=== PATIENT | female | born 1945 | race Caucasian/White ===

== ENCOUNTER 2016-10-14 10:53 | Outpatient (CLI) | payer MEDICARE, BC ==
[~2016-10-14] VITALS: Ht 165.1 cm; Wt 62.7 kg
[~2016-10-14 10:53] MED LIST: AMBIEN10 MG PO; ARMOUR THYROID60 M1 PO; CELEXA20 MG PO; DILAUDID2 MG PO; GLUCOPHAGE1000 MG PO; HORMONE PATCH; HYDROCODON-ACE1 EAC7 PO; NEXIUM40 MG PO; XANAX1 MG PO
[2016-10-14] MEDS ORDERED: SYMBICORT 80-10.2 GM INH (11:26)
[2016-10-14 11:31] VITALS: BP 111/46; Ht 165.1 cm; Wt 62.7 kg
--- NOTE | 2016-10-14 11:55 | NUR ---
1155 PT VOIDS, DRINKING WATER, PT. ENCOURAGED TO DRINK PLENTY OF WATER. DC INSTS. GIVEN WITH HANDOUTS. RELEASED AMB.
== END 2016-10-14 11:55 | disposition home or self-care (01) ==
LOC: D.OPS 10:53
DX: M81.0 Age-related osteoporosis without current pathological fracture (principal)

== ENCOUNTER → 2018-02-09 10:24 | Outpatient (CLI) | payer MEDICARE, BC ==
[2016-10-14 11:31] VITALS: BMI 23.0
[~2018-02-09 10:24] MED LIST changes: +SYMBICORT 80-10.2 GM INH
== END | disposition home or self-care (01) ==
LOC: D.US 10:24
DX: I83.893 Varicose veins of bilateral lower extremities with other complications (principal)

== ENCOUNTER 2018-02-18 10:02 | Outpatient (CLI) | payer MEDICARE, BC ==
[~2018-02-18] VITALS: Ht 165.1 cm; Wt 68.6 kg
[2018-02-18 10:32] VITALS: Ht 165.1 cm; Wt 68.6 kg
== END 2018-02-18 11:21 | disposition home or self-care (01) ==
LOC: D.OPS 10:02
DX: M81.0 Age-related osteoporosis without current pathological fracture (principal)

== ENCOUNTER → 2018-02-22 07:42 | Outpatient (CLI) | payer MEDICARE, BC ==
[2018-02-18 10:32] VITALS: BMI 25.1
== END | disposition home or self-care (01) ==
LOC: D.MRI 07:42
DX: M54.16 Radiculopathy, lumbar region (principal)

== ENCOUNTER 2018-09-01 19:39 | Observation (INO) | payer MEDICARE, BC ==
[~2018-09-01] VITALS: Ht 165.1 cm; Wt 69.4 kg
[2018-09-01] MEDS ORDERED: ATIVAN0.5 MG (19:49)
[2018-09-01] MEDS ORDERED: LEXAPRO10 MG PO (19:49)
[2018-09-01 19:57] VITALS: BP 106/49
[2018-09-01 20:33] LABS: EOSINOPHILS 6.3 % (0-7); HEMOGLOBIN 11.6 g/dL (12-16); IMMATURE GRANULOCYTES 0.1 % (0-5); LYMPHOCYTES 25.7 % (15-50); MCH 30.3 pg (26.0-34.0); MCHC 34.1 g/dL (31.0-37.0); MCV 88.8 fL (80.0-100.0); MEAN PLATELET VOLUME 9.2 fL (7.4-10.4); MONOCYTES 9.8 % (2-11); NEUTROPHILS 57.1 % (40-80); PLATELET COUNT 295 10x3/uL (130-400); RBC 3.83 10x6/uL (4.00-5.40); RDW 13.8 % (11.5-14.5); WBC 8.1 10x3/uL (4.8-10.8)
[2018-09-01 20:43] LABS: APTT 29.6 SECONDS (22.8-39.4); INR 0.99 (0.85-1.17); PROTIME 12.6 SECONDS (11.6-15.0)
[2018-09-01 21:11] LABS: ALBUMIN 3.5 g/dL (3.4-5.0); ALKALINE PHOSPHATASE 60 U/L (46-116); ALT (SGPT) 25 U/L (10-68); CALC OSMOLALITY 276 mosm/kg (275-300); CARBON DIOXIDE 24.6 mmol/L (21.0-32.0); CHLORIDE - SERUM 102 mmol/L (98-107); CKMB 2.8 U/L (0.0-3.6); CREATINE KINASE 169 UL (21-215); CREATININE - SERUM 0.9 mg/dL (0.6-1.3); GLUCOSE 91 mg/dL (74-106); MAGNESIUM - SERUM 1.5 mg/dL (1.8-2.4); PROTEIN - SERUM 6.7 g/dL (6.4-8.2); SODIUM 138 mmol/L (136-145); UREA NITROGEN 15 mg/dL (7-18); eGFR NON AFRICAN AMERICAN 65 mL/min (90-120)
[2018-09-01 21:13] LABS: POTASSIUM - SERUM 2.9 mmol/L (3.5-5.1); TROPONIN-I < 0.017 ng/mL (0.000-0.060)
--- NOTE | 2018-09-01 23:06 | NUR ---
REPORT RECEIVED FROM ERICKA ISLAS.
--- NOTE | 2018-09-01 23:10 | NUR ---
ARRIVED TO FLOOR VIA WHEELCHAIR, ACCOMPANIED BY HOSPITAL STAFF AND FAMILY. ORIENTED TO UNIT AND PLACED ON TELEMETRY. PLAN OF CARE DISCUSSED, CALL LIGHT IN REACH. SEE NURSE ASSESSMENT.
[2018-09-02 00:01] VITALS: BP 113/56; BMI 25.5
[2018-09-02] MEDS ORDERED: ALBUTEROL1.25 MG/3 INH (00:12)
[2018-09-02] MEDS ORDERED: STOOL SOFTENER100 M1 PO (00:12)
[2018-09-02 03:12] LABS: EOSINOPHILS 6.4 % (0-7); HEMOGLOBIN 12.1 g/dL (12-16); IMMATURE GRANULOCYTES 0.1 % (0-5); LYMPHOCYTES 33.2 % (15-50); MCH 30.3 pg (26.0-34.0); MCHC 34.6 g/dL (31.0-37.0); MCV 87.7 fL (80.0-100.0); MONOCYTES 8.4 % (2-11); NEUTROPHILS 50.9 % (40-80); PLATELET COUNT 295 10x3/uL (130-400); RBC 3.99 10x6/uL (4.00-5.40); RDW 13.7 % (11.5-14.5)
[2018-09-02 03:30] LABS: ALBUMIN 3.3 g/dL (3.4-5.0); ALKALINE PHOSPHATASE 57 U/L (46-116); ALT (SGPT) 24 U/L (10-68); CALC OSMOLALITY 278 mosm/kg (275-300); CALCIUM 8.8 mg/dL (8.5-10.1); CHLORIDE - SERUM 104 mmol/L (98-107); CKMB 2.4 U/L (0.0-3.6); CREATINE KINASE 147 UL (21-215); CREATININE - SERUM 0.8 mg/dL (0.6-1.3); GLUCOSE 95 mg/dL (74-106); POTASSIUM - SERUM 3.3 mmol/L (3.5-5.1); PROTEIN - SERUM 6.5 g/dL (6.4-8.2); SODIUM 140 mmol/L (136-145); UREA NITROGEN 13 mg/dL (7-18); eGFR NON AFRICAN AMERICAN 74 mL/min (90-120)
[2018-09-02 03:31] LABS: TROPONIN-I < 0.017 ng/mL (0.000-0.060)
[2018-09-02 04:00] VITALS: BP 93/52
--- NOTE | 2018-09-02 04:25 | NUR ---
ADVERTISING WRITER AT BEDSIDE TO OBTAIN VITALS, CALL LIGHT IN REACH. WILL CONTINUE WITH PLAN OF CARE.
[2018-09-02 09:27] LABS: CKMB 2.4 U/L (0.0-3.6); CREATINE KINASE 130 UL (21-215); TROPONIN-I < 0.017 ng/mL (0.000-0.060)
[2018-09-02 09:33] VITALS: BP 113/43
[2018-09-02 12:18] VITALS: BP 112/46
[2018-09-02 12:47] VITALS: Ht 165.1 cm; Wt 69.4 kg
--- NOTE | 2018-09-02 15:03 | NUR ---
IV AND TELEMETRY DCD. DC PLANS GIVEN. UNDERSTANDING VOICED. ESCORTED TO CAR BY W/C.
--- NOTE | 2018-09-03 08:22 | MORECARE ---
CASE MANAGEMENT DISCHARGE SUMMARY PATIENT: CUBA BIRMINGHAM UNIT: [id number] ADM DATE: 09/01/18 AGE: 73 : 43 SEX: F ROOM/BED: D.2855 AUTHOR: SUNITHA HENNING PHYSICIAN: REFERRING PHYSICIAN: CARLEY MORLEY MD DATE OF SERVICE: 09/03/18 Discharge Plan Patient Name: CUBA BIRMINGHAM Facility: [facility]:[place] : 1945 Planned Disposition: Home Anticipated Discharge Date: 09/02/18 Discharge Date: 09/02/2018 Expected LOS: 1 Initial Reviewer: [email or web address] Initial Review Date: 09/03/2018 Generated: 09/03/18 9:22 am Patient Name: CUBA BIRMINGHAM Page [id number] at 0822 All edits/amendments must be made on the electronic document DICTATION DATE: 09/03/18821 ACCOUNT MANAGER TRAINEE: DAILY 09/03/18821 RPT#: [id number] DC DATE:09/02/18 STATUS: DIS IN [facility] [address] [place] [address] END OF REPORT
== END 2018-09-02 15:24 | disposition home or self-care (01) ==
LOC: D.ER 19:39 → OBSVTIME 22:49 → D.M2 22:49
PROVIDERS: Family Medicine; ADMIT Family Medicine
DX: I20.9 Angina pectoris, unspecified (principal); K21.9 Gastro-esophageal reflux disease without esophagitis; E03.9 Hypothyroidism, unspecified; J45.909 Unspecified asthma, uncomplicated; M81.0 Age-related osteoporosis without current pathological fracture; M85.80 Other specified disorders of bone density and structure, unspecified site; Z91.041 Radiographic dye allergy status

== ENCOUNTER → 2018-09-30 05:10 | Day surgery (SDC) | payer MEDICARE, BC ==
[2018-09-29 14:59] LABS: HEMOGLOBIN 10.7 g/dL (12-16); MCH 30.1 pg (26.0-34.0); MCHC 33.4 g/dL (31.0-37.0); MCV 90.1 fL (80.0-100.0); MEAN PLATELET VOLUME 9.3 fL (7.4-10.4); RBC 3.55 10x6/uL (4.00-5.40); RDW 13.6 % (11.5-14.5)
[~2018-09-30] VITALS: Ht 165.1 cm; Wt 70.3 kg
[~2018-09-30 05:10] MED LIST changes: +ALBUTEROL1.25 MG/3 INH; +ALBUTEROL2.5 MG/3 M INH; +ATIVAN0.5 MG; +ATIVAN0.5 MG PO; +BREO ELLIPTA 21 EACH; +FLUTICASONE PRO16 GM NASAL; +HYDROCODON-ACE1 EA10 PO; +K-TAB10 MEQ PO; +LEXAPRO10 MG PO; +MAXZIDE 75/501 TAB PO; +STOOL SOFTENER100 M1 PO; +VIVELLE-DOT 00.05 MG TD; +ZOLOFT100 MG PO
[2018-09-30 06:31] VITALS: BP 108/48; BP 168/48; Ht 165.1 cm; Wt 70.3 kg
--- NOTE | 2018-09-30 13:18 | NUR ---
1245. ALL DC CRITERIA MET. ALL DC INSTRUCTIONS GIVEN WELL FOLLOW UP APPOINTMENT. TAKEN OUT VIA W/C AND ASSISTED TO CAR WITH SON. ADVISED TO CALL OR COME BACK IF ANY PROBLEMS.
--- NOTE | 2018-10-08 17:22 | OP ---
PATIENT NAME: CUBA BIRMINGHAM MEDICAL RECORD: [id number] :43 LOCATION:[facility] ADMISSION DATE: SURGEON: KATHRYN APODACA MD DATE OF OPERATION: 09/30/2018 PREOPERATIVE DIAGNOSES: Lumbar spinal stenosis, L4-L5 left with foraminal stenosis. PROCEDURES: Lumbar laminotomy, medial facetectomy and foraminotomy L4-L5 left with METRx retractor. SURGEON: Kathryn Apodaca MD DESCRIPTION AND TECHNIQUE: After induction of general endotracheal anesthesia, the patient was rolled prone on a Reji frame. Lumbar spine was prepped and draped in usual sterile fashion. Fluoroscopic x-ray and a spinal needle localized the L4-L5 interspace on the left side. Level was confirmed with fluoroscopic x-ray. A microscope and Midas Avinash drill were used to perform a laminotomy, medial facetectomy and foraminotomy at L4-L5 on the left. Hypertrophied ligamentum flavum was removed with Cloward rongeurs. Following this, the L4 and L5 nerve roots were decompressed well. Meticulous hemostasis was maintained throughout the wound. Wound was irrigated with copious amounts of Ancef irrigant solution. The retractors were removed. The fascia was closed with 2-0 Vicryl suture. Subdermal layer was closed with interrupted 3-0 Vicryl suture. The skin was reapproximated with Steri-Strips and benzoin. A sterile dressing was applied to the wound. The patient was awakened in good condition and taken to recovery. All counts were reported as correct. Estimated blood loss was minimal. TRANSINT:[id number] Voice Confirmation ID: [id number] DOCUMENT ID: [id number] KATHRYN APODACA MD at 1722 CC: [id number] DICTATION DATE: 10/06/18 0745 FIELD ENUMERATOR: 10/06/18 0852 [facility] 09/30/18 [place] [id number]
== END | disposition home or self-care (01) ==
LOC: D.OPS 05:10 → D.PAN 07:30 → D.OPS 07:30
PROVIDERS: Anesthesiology; ATTEND Neurological Surgery
DX: M48.061 Spinal stenosis, lumbar region without neurogenic claudication (principal)

== ENCOUNTER 2018-10-14 10:40 | Day surgery (SDC) | payer MEDICARE, BC ==
[2018-10-13 13:43] LABS: HEMATOCRIT 32.7 % (36.0-48.0); HEMOGLOBIN 10.9 g/dL (12-16); MCH 29.5 pg (26.0-34.0); MCHC 33.3 g/dL (31.0-37.0); MCV 88.6 fL (80.0-100.0); MEAN PLATELET VOLUME 8.6 fL (7.4-10.4); RBC 3.69 10x6/uL (4.00-5.40); RDW 12.8 % (11.5-14.5); WBC 13.1 10x3/uL (4.8-10.8)
[~2018-10-14] VITALS: Ht 165.1 cm; Wt 70.3 kg
[2018-10-14 11:44] VITALS: BP 97/74; Ht 165.1 cm; Wt 70.3 kg
--- NOTE | 2018-10-14 17:50 | NUR ---
DR CHIU SPEAKS WITH PATIENT ABOUT CANCELLING SURGERY DUE TO DELAYS IN OR. RIGHT HAND PIV DC'D WITH TIP INTACT. PATIENT DRESSING IN PERSONAL CLOTHING WITH SON WAITING OUTSIDE ROOM 1802 PATIENT DISCHARGED HOME AMBULATORY WITH SON
== END 2018-10-14 18:02 | disposition home or self-care (01) ==
LOC: D.OPS 10:40
PROVIDERS: Anesthesiology; ATTEND Urology
DX: N39.3 Stress incontinence (female) (male) (principal); Z53.8 Procedure and treatment not carried out for other reasons; Z01.812 Encounter for preprocedural laboratory examination

== ENCOUNTER 2018-11-09 07:15 | Day surgery (SDC) | payer MEDICARE, BC ==
[2018-11-08 11:57] LABS: HEMATOCRIT 34.1 % (36.0-48.0); HEMOGLOBIN 11.6 g/dL (12-16); MCH 29.2 pg (26.0-34.0); MCV 85.9 fL (80.0-100.0); MEAN PLATELET VOLUME 9.2 fL (7.4-10.4); RBC 3.97 10x6/uL (4.00-5.40); RDW 13.2 % (11.5-14.5); WBC 7.6 10x3/uL (4.8-10.8)
[2018-11-08 12:12] LABS: ANION GAP 12.7 mmol/L (8-16); CALCIUM 9.9 mg/dL (8.5-10.1); CARBON DIOXIDE 28.6 mmol/L (21.0-32.0); CREATININE - SERUM 0.9 mg/dL (0.6-1.3); POTASSIUM - SERUM 3.3 mmol/L (3.5-5.1)
[~2018-11-09] VITALS: Ht 165.1 cm; Wt 70.3 kg
[2018-11-09 08:03] VITALS: BP 104/45; Ht 165.1 cm; Wt 70.3 kg
--- NOTE | 2018-11-09 14:40 | NUR ---
PT ASSISTED TO BATHROOM, VOIDED UNMEASURED AMT BLOOD NOTE IN TOILET NO CLOTS,
--- NOTE | 2018-11-09 15:35 | NUR ---
1500 PTS PAD WITH LIGHT SCANT AMT OF BLOOD. 1515 IV REMOVED AND PRESSURE HELD. CATH INTACT. 1530 ASSISTED WITH GETTING DRESSED AND TO HOME IN W/C POST OP INSTRUCTIONS AND RX REVEIWED WITH SON EARLIER
--- NOTE | 2018-11-09 16:15 | OP ---
PATIENT NAME: CUBA BIRMINGHAM MEDICAL RECORD: [id number] :43 LOCATION:D.[facility] ADMISSION DATE: SURGEON: ZI CHIU MD DATE OF OPERATION: 11/09/2018 SURGEON: Zi Chiu MD ANESTHESIA: General anesthesia by Shweta Huang CRNA DIAGNOSIS: Female stress urinary incontinence. PROCEDURES: Cystoscopy, pubovaginal sling with mesh - [place] [employer] Obtryx II. FINDINGS: On cystoscopy, single ureteral orifices bilaterally. No bladder tumors seen. There was no bladder injury. The patient also has a grade I cystocele on pelvic examination. BLOOD LOSS: Minimal. SPECIMENS: None. CLINICAL HISTORY: This is a 73-year-old female A0, who still has her uterus. She has been complaining of urinary incontinence for a number of months. She will leak urine when she arises from bed or chair. She will also leak urine with coughing, sneezing, shouting, or lifting. She has no urinary urgency. She tried oxybutynin, which did not work at all. She uses 3-5 pads per day. She has nocturia times 1. Due to the high volume of leakage, she may soak through her clothing and she is quite bothered by the incontinence. When I examined her in the office, she did have stress urinary incontinence in association with a hypermobile urethra. She had a positive Toby test. In the office, I did not see any significant cystocele, but there is a grade I cystocele on pelvic examination today. She does not have any uterine descent. SHE IS ALLERGIC TO PENICILLIN, CODEINE, NSAIDs, DARVOCET, AND IODINATED CONTRAST. In the past when she has had surgery, she had Salinas given to her for pain and it works fine for her. She was given Levaquin IV on-call to the OR. She wishes to have mesh for the pubovaginal sling. She is aware of the risks of mesh use including infection, graft erosion, graft extrusion into the vagina. There is also risk of dyspareunia and chronic pelvic pain. She is also aware that the adverse outcomes of surgery may include persistence of stress urinary incontinence, urinary retention or incomplete bladder emptying, de balaji urge incontinence. She wishes to proceed with surgery. DESCRIPTION OF PROCEDURE: The patient was given induction of general anesthesia. She was placed into dorsal lithotomy position and in Trendelenburg. A weighted speculum was used to hold the posterior vaginal wall down. We placed a 16-Barbadian Donaldson catheter and put it to bag drainage. The #2 nylon sutures were used as stay sutures to retract the labia majora laterally. These were anchored to the medial thighs. The anterior vaginal wall was then infiltrated in the region of the urethra with Pitressin solution. Twenty units of Pitressin was dissolved in 100 mL of injectable normal saline. This anterior dissection was limited to the urethral area and to the proximal bladder neck to serve as hydrodissection. A T-shaped incision was made. The crossbar of the T was located about 1 cm away from the urethral meatus. The vertical bar of T ran along the anterior vaginal wall midline. Once the incision was made, dissection OPERATIVE REPORT [id number] CUBA BIRMINGHAM was then made with Metzenbaum scissors through the pubocervical fascia. I exposed the obturator membrane on both sides. Especially, the anterior apex of the obturator membrane was exposed. We then landmarked for the insertion of the transobturator graft. This was just inferior to the insertion of the adductor longus muscle onto the descending pubic ramus. A murali was made on each side with a marking pen at this point. A stab incision was made using a #15 blade. The helical trocars were then passed through this stab incision, and with the helical trocar passing deep to the descending pubic ramus, the tip of the needle came out through the anterior apex of the obturator membrane. The Obtryx graft ends were then attached to each of the tips of the helical trocars. By withdrawing the helical trocars, we had transobturator passage of the graft. There was a tab situated in the midportion of the graft. This tab was placed under the midpoint of the mid urethra. At this point, the graft was placed fairly loosely. I then removed the tab once it was in correct position. The Donaldson catheter was removed and cystoscopy was performed using a 17-Barbadian cystoscope. No bladder injury was seen. The bladder was filled through the cystoscope with normal saline. By applying manual suprapubic pressure, we could elicit leakage per the urethra. Tension on the graft was gradually increased until there was just the barest amount of leakage with rather significant amount of suprapubic pressure applied manually. At this point, I decided not to make the graft any tighter unless she should go into urinary retention. The clear plastic sheath material was removed from each of the graft ends. This was done by cutting suture and then with a Aydee clamp between the urethra and the midpoint of the graft to prevent an increase in graft tension. The sheath material was removed. The ends of the graft were then cut where they exited the inguinal skin incisions. These incisions were then closed with simple interrupted 4-0 Monocryl. The vaginal wound site was irrigated out with normal saline. The vaginal incision was closed using running 4-0 Monocryl. During the closure, a Donaldson catheter was put back into the bladder to drain the bladder. At the end of the closure, vaginal packing was inserted into the vaginal area. This consisted of Kerlix infiltrated with estrogen cream. This packing will be removed prior to the patient going home today. The Donaldson catheter was also removed. We will have the patient try to void today. If she cannot void after anesthesia, then she will go home with a Donaldson cath and I will see her later this week to have another voiding trial. Otherwise, I will see her in follow up in one week's time. TRANSINT:[id number] Voice Confirmation ID: [id number] DOCUMENT ID: [id number] ZI CHIU MD at 1615 CC: [id number] DICTATION DATE: 11/09/18 1244 LANDSCAPE TECHNICIAN: 11/09/18 1608 [facility] 11/09/18 [place] [id number] [place] [id number]
== END 2018-11-09 15:30 | disposition home or self-care (01) ==
LOC: D.OPS 07:15 → D.PAN 08:55 → D.OPS 09:15 → D.PAN 09:15 → D.OPS 09:30 → D.PAN 09:30 → D.OPS 15:30
PROVIDERS: Anesthesiology; ATTEND Urology
DX: N39.3 Stress incontinence (female) (male) (principal); N81.10 Cystocele, unspecified; Z88.5 Allergy status to narcotic agent; Z88.0 Allergy status to penicillin; Z88.6 Allergy status to analgesic agent; Z91.041 Radiographic dye allergy status; Z01.812 Encounter for preprocedural laboratory examination

== ENCOUNTER → 2020-01-20 09:33 | Outpatient (CLI) | payer MEDICARE, BC ==
[2018-11-09 08:03] VITALS: BMI 25.8
== END | disposition home or self-care (01) ==
LOC: D.RAD 09:33
PROVIDERS: ATTEND Internal Medicine Gastroenterology
DX: R13.10 Dysphagia, unspecified (principal); K22.2 Esophageal obstruction; K31.89 Other diseases of stomach and duodenum; K21.0 Gastro-esophageal reflux disease with esophagitis; R12 Heartburn; R07.9 Chest pain, unspecified

== ENCOUNTER → 2020-03-07 14:15 | Outpatient (CLI) | payer MEDICARE, BC ==
[2018-11-09 08:03] VITALS: BMI 25.8
== END | disposition home or self-care (01) ==
LOC: D.MRI 14:15
PROVIDERS: ATTEND Family Medicine
DX: L03.115 Cellulitis of right lower limb (principal)

== ENCOUNTER 2020-12-04 05:05 | Day surgery (SDC) | payer MEDICARE, BC ==
[~2020-12-04] VITALS: Ht 165.1 cm; Wt 73.5 kg
[~2020-12-04 05:05] MED LIST changes: +ADVAIR 250-501 EAC1 INH; +GABAPENTIN100 MG PO
[2020-12-04 05:56] VITALS: BP 107/44; Ht 165.1 cm; Wt 73.5 kg
[2020-12-04 06:06] LABS: EOSINOPHILS 3.6 % (0-7); HEMATOCRIT 36.4 % (36.0-48.0); HEMOGLOBIN 12.6 g/dL (12-16); IMMATURE GRANULOCYTES 0.3 % (0-5); LYMPHOCYTE ABS# 2.41 10x3/uL (1.18-3.74); LYMPHOCYTES 33.7 % (15-50); MCH 30.5 pg (26.0-34.0); MCHC 34.6 g/dL (31.0-37.0); MCV 88.1 fL (80.0-100.0); MEAN PLATELET VOLUME 8.8 fL (7.4-10.4); MONOCYTES 12.2 % (2-11); NEUTROPHIL ABS# 3.53 10x3/uL (1.56-6.13); NEUTROPHILS 49.2 % (40-80); PLATELET COUNT 359 10x3/uL (130-400); RBC 4.13 10x6/uL (4.00-5.40); RDW 14.5 % (11.5-14.5); WBC 7.2 10x3/uL (4.8-10.8)
[2020-12-04 06:18] LABS: ANION GAP 11.1 mmol/L (8-16); CALCIUM 10.4 mg/dL (8.5-10.1); CARBON DIOXIDE 28.4 mmol/L (21.0-32.0); CREATININE - SERUM 0.8 mg/dL (0.6-1.3); POTASSIUM - SERUM 3.5 mmol/L (3.5-5.1)
--- NOTE | 2020-12-04 11:35 | NUR ---
1120 PATIENT UP TO BATHROOM WITH ASSISTANCE FROM SPOUSE. STATES THAT SHE VOIDED A FEW DROPS. ENCOURAGED HER TO CONTINUE TO DRINK MORE LIQUIDS. WILL AWAIT DISCHARGE UNTIL MORE EFFECTIVE VOID.
--- NOTE | 2020-12-04 12:19 | NUR ---
1200 IV D/C'D WITH TIP INTACT. PATIENT UP TO BATHROOM. VOIDED. DRESSED FOR DISCHARGE. DISCHARGED TO PRIVATE CAR VIA WHEELCHAIR.
--- NOTE | 2020-12-05 13:09 | OP ---
PATIENT NAME: CUBA BIRMINGHAM MEDICAL RECORD: [id number] :43 LOCATION:D.[facility] ADMISSION DATE: SURGEON: PEPPER LINDSAY DO DATE OF OPERATION: 12/04/2020 PREOPERATIVE DIAGNOSIS: High-grade squamous intraepithelial lesion. POSTOPERATIVE DIAGNOSIS: High-grade squamous intraepithelial lesion, stage III cystocele. PRIMARY SURGEON: Pepper Lindsay DO ANESTHESIA: General ET tube. PROCEDURE: Loop electrosurgical excision procedure. FINDINGS: Normal appearing external genitalia, normal appearing vaginal vault, stage III anterior prolapse. Cervix grossly normal. SPECIMENS: Portion of ectocervix and portion of endocervix. ESTIMATED BLOOD LOSS: 5 cc. INTRAVENOUS FLUIDS: 900 cc. COMPLICATIONS: None. CONDITION: Stable. DESCRIPTION OF PROCEDURE: The risks, benefits and alternatives and indications of the procedure were discussed with the patient. She voiced understanding of the procedure and signed the consent. She was taken to the OR where general anesthesia was administered and found to be adequate. She was placed in the dorsal lithotomy position. She was prepped and draped in the normal sterile fashion. A speculum was placed in the posterior aspect of the vagina. The anterior prolapse was noted to be obscuring view of the cervix and so a large cotton swab was used to protect the bladder away from the cervix. A medium loop electrode was used to remove a portion of the anterior and posterior cervix and the small loop electrode was used to take a portion of the endocervix and both were sent to pathology. A rollerball was then used to coagulate the area and good hemostasis was noted. A small amount of Monsel's solution was used for hemostasis and good hemostasis was noted at the end of the procedure. All instruments were removed from the vagina. The bladder was noted to be intact and unharmed. The lap, sponge, and instrument count was correct times 2. The patient tolerated the procedure well and she was awakened and taken to the recovery room in stable condition. TRANSINT:[id number] Voice Confirmation ID: [id number] DOCUMENT ID: [id number] OPERATIVE REPORT [id number] CUBA BIRMINGHAM PEPPER LINDSAY DO at 1309 CC: [id number] DICTATION DATE: 12/04/20 0808 SENIOR IT ARCHITECT: 12/04/20 1223 [facility] 12/04/20 [facility] [address] [place] [address]
== END 2020-12-04 12:17 | disposition home or self-care (01) ==
LOC: D.OPS 05:05
PROVIDERS: Anesthesiology; ATTEND Student in an Organized Health Care Education/Training Program
DX: R87.613 High grade squamous intraepithelial lesion on cytologic smear of cervix (HGSIL) (principal); R87.619 Unspecified abnormal cytological findings in specimens from cervix uteri; N81.10 Cystocele, unspecified